=== PATIENT | female | born 1950 | race Caucasian/White ===

== ENCOUNTER 2021-12-25 12:06 | Inpatient (IN) | payer MEDICARE, OTHER ==
[~2021-12-25] VITALS: Ht 165.1 cm; Wt 45.6 kg
[~2021-12-25 12:06] MED LIST: Boniva150 MG PO; CEFD300 PO; DEXA4; LINZESS145 MCG PO; MELO7.5 PO; MEMA10 PO
[2021-12-25 12:41] LABS: BASOPHILS ABSOLUTE AUTO 0.02 K/mm3 (0.00-0.23); BASOPHILS PERCENT AUTO 0 % (0-2); EOSINOPHILS ABSOLUTE AUTO 0.01 K/mm3 (0.00-0.68); EOSINOPHILS PERCENT AUTO 0 % (0-6); IMMATURE GRAN ABSOLUTE AUTO 0.06 K/mm3 (0.00-0.10); IMMATURE GRAN PERCENT AUTO 1 % (0-1); LYMPHOCYTES ABSOLUTE AUTO 0.83 K/mm3 (0.84-5.20); LYMPHOCYTES PERCENT AUTO 8 % (21-46); MONOCYTES ABSOLUTE AUTO 1.11 K/mm3 (0.16-1.47); MONOCYTES PERCENT AUTO 11 % (4-13); Mean Corpuscular HGB 26.3 pg (26.0-34.0); Mean Corpuscular HGB Conc 29.6 g/dL (31.5-36.5); Mean Corpuscular Volume 89 fL (80-100); Mean Platelet Volume 10.1 fL (9.1-12.4); NEUTROPHILS PERCENT AUTO 79 % (41-73); Platelet Count 436 K/mm3 (150-400); RDW Standard Deviation 54.2 fL (35.1-46.3); White Blood Cell Count 9.83 K/mm3 (4.00-11.30)
[2021-12-25 12:45] LABS: Hematocrit 16.9 % (33.0-51.0)
[2021-12-25 13:07] LABS: Albumin, Blood 2.2 g/dL (3.4-5.0); Albumin/Globulin Ratio 0.7 (0.8-1.8); Bilirubin, Total 0.2 mg/dL (0.1-1.0); Bun/Creatinine Ratio 74.8 (12.0-20.0); Calcium, Blood 8.4 mg/dL (8.5-10.1); Creatinine, Blood 0.63 mg/dL (0.40-1.00); Potassium, Blood 3.8 mmol/L (3.5-5.5); Total Protein, Blood 5.2 g/dL (6.4-8.2)
--- NOTE | 2021-12-25 18:01 | NUR ---
Received call from ED RN Deniz Valencia reporting Pt and family may benefit from Palliative Care Consult. Received call from ICU slice cutting machine operator helper Stacey reporting family may benefit from goals of care discussion. Joint visit with Dr Lehman and this RN in Pt's ED room. Pt pleasantly confused with spouse Steven at [facility]. Dr Lehman provides update on findings and discusses recommendations. This RN engaged in therapeutic discussion regarding gaols of care including consider comfort care. Spouse Steven intermittently tearful and appears to be struggling with information and stating being unsure and "not ready to give up yet". He reports being to Pt for 53 years. They have no children but he does have siblings that have been assisting with her care. Steven reports Pt is a DNR and would like time to consider options. He would like to pursure treatment until he has had the oppertunity to process information. Steven is agreeable for continued PC visits. Palliative Care will F/U for therapeutic visits.
--- NOTE | 2021-12-25 18:46 | NUR ---
Spiritual Care Visit - Palliative Care Request Pt. is still in ED7 and welcomes my visit. Spouse is present. Both Pt. and spouse are unsettled about the Pts. condition. Pt. displays evidence of being fearful, and spouse displays evidence of being in shock. With a calming presence and empathetic listening pray for pt. and spouse. They both verbalize gratitude for the spiritual care visit, and welcome this rubbish collector to return in the AM after she is moved to ICU8.
[2021-12-25 19:31] LABS: Hemoglobin 9.7 g/dL (11.5-16.0)
[2021-12-25 21:15] LABS: Hematocrit 27.4 % (33.0-51.0)
[2021-12-26 01:23] LABS: Hematocrit 27.6 % (33.0-51.0)
[2021-12-26 01:56] LABS: PCO2 Arterial 34.1 mmHg (35-45); PO2 Arterial 390 mmHg (80-100)
[2021-12-26 01:57] LABS: pH Blood Arterial 7.07 (7.35-7.45)
[2021-12-26 04:21] LABS: Hemoglobin 8.1 g/dL (11.5-16.0); Mean Corpuscular HGB Conc 32.4 g/dL (31.5-36.5); Mean Corpuscular Volume 90 fL (80-100); Mean Platelet Volume 10.2 fL (9.1-12.4); NRBC ABSOLUTE 0.18 K/mm3 (0.00-0.02); Platelet Count 222 K/mm3 (150-400); RDW Standard Deviation 52.8 fL (35.1-46.3); Red Blood Cell Count 2.79 M/mm3 (3.80-5.20); White Blood Cell Count 17.72 K/mm3 (4.00-11.30)
[2021-12-26 04:44] LABS: Albumin, Blood 1.8 g/dL (3.4-5.0); Albumin/Globulin Ratio 0.8 (0.8-1.8); Bilirubin, Total 1.4 mg/dL (0.1-1.0); Calcium, Blood 7.8 mg/dL (8.5-10.1); Creatinine, Blood 0.89 mg/dL (0.40-1.00); Globulin, Blood 2.3 g/dL (2.2-4.0); Magnesium, Blood 3.4 mg/dL (1.6-2.4); Potassium, Blood 5.2 mmol/L (3.5-5.5); Total Protein, Blood 4.1 g/dL (6.4-8.2)
[2021-12-26 05:09] LABS: BAND PERCENT MAN 13 % (0-8); BASOPHILS PERCENT MAN 0 % (0-2); EOSINOPHILS PERCENT MAN 0 % (0-6); LYMPHOCYTES ABSOLUTE MAN 0.88 K/mm3 (0.84-5.20); LYMPHOCYTES PERCENT MAN 5 % (21-46); METAMYELOCYTE ABSOLUTE MAN 0.35 K/mm3 (0.00-0.00); METAMYELOCYTE PERCENT MAN 2 % (0-0); MONOCYTES ABSOLUTE MAN 0.35 K/mm3 (0.16-1.47); MONOCYTES PERCENT MAN 2 % (4-13); MYELOCYTE ABSOLUTE MAN 0.35 K/mm3 (0.00-0.00); MYELOCYTE PERCENT MAN 2 % (0-0); NEUTROPHILS ABSOLUTE MAN 15.77 K/mm3 (1.96-9.15); SEG NEUTROPHILS PERCENT MAN 76 % (41-73); TOTAL CELLS COUNTED 100
--- NOTE | 2021-12-26 05:20 | NUR ---
PT ARRIVED TO ICU AROUND 2014 FROM ED. NEURO: A&OX4. PLEASENTLY CONFUSED INTERMITTENTLY - CALLS "HONEY" REPEATIVELY. DENIES PAIN OR DISCOMFORT CV: PRESSORS TITRATE TO MAP > 60. ART LINE ZERO AND APPROPRIATE WAVEFORM. AFEBRILE LUNGS: [place] ON HIFLO 100% 30L. ABG REPORTED TO DR. THURSTON GI/: RECTAL TUBE IN PLACE. BLACK TARRY STOOL SKIN: Q2 TURNS BONY PROMINENCES OFFLOADED AND PROTECTED. COCCYX BLANCHABLE ERYTHEMA W/SCABBED SKIN TEAR (PIC IN CHART). DRESSING PLACED FOR SKIN PROTECTION
--- NOTE | 2021-12-26 07:58 | NUR ---
Assumed care of pt at 0700 from Yaron BIRCH. Pt responsive to pressure. Breathing with high flow, heated NC, initially 30 LPM and 100% FiO2. Unable to achieve SpO2 reading on patient despite use of nare probe. RT called into room as pt was tachypneic, RR 35. Retractions noted in neck. RT increased flow to [address] Jordan on phone as pressor requirements are increasing. Ionized calcium checked. Provider ordered 1 liter PRBC and 1 liter NS bolus.
--- NOTE | 2021-12-26 10:32 | NUR ---
Spiritual care visit. Pt. is awake in bed. Spouse and Sister IL are present. Pt. displays evidence of anxiety and shock. Pt. verbalizes that she doesn't understand "what is going to happen." Listen empathetically and normalize the Pt. experience. Prayed with Pt. Spouse verbalized gratitude for the spiritual care visit. Will remain available to the Pt. , family and staff.
--- NOTE | 2021-12-26 10:53 | NUR ---
Supportive visit earlier this AM. Pt resting in bed with her eyes closed. Pt's spouse and spouse's sister at bedside. Offered active listening and answered questions. Gentle discussion regarding considering comfort care. Spouse appears to be struggling with Pt's prognosis and does not comment much regarding this option. Continued supportive visit. Family agreeable for this RN to F/U a little later today. Palliative Care will remain availabe for supportive and therapeutic visits.
--- NOTE | 2021-12-26 11:58 | NUR ---
RECTAL TUBE BECAME DISLODGED DURING BATHING. TUBE REPLACED. LIQUID DARK STOOL MIXED WITH BRIGHT RED NOTED.
--- NOTE | 2021-12-26 12:00 | NUR ---
1200 ASSESSMENT Pt is more alert after bolus of NS and unit of blood. Pt responded well to fluid bolus and pressors quickly decreased as SBP increased rapidly to 150 mmHg with MAPs in 80s. At cessation of bolus, pressor requirements slowly increased. Pt stating she is in pain. Dr Jordan notified. New orders received. Dr Jordan and Dr Lehman in to see patient to discuss goals of care and prognosis. Dr Pacheco of GI has been notified of case and potential GI bleed. Serrano catheter placed and urinalysis sent. Serrano insertion yielded only 30 mL of urine.
[2021-12-26 12:45] LABS: Hematocrit 28.6 % (33.0-51.0); Hemoglobin 9.5 g/dL (11.5-16.0)
[2021-12-26 12:58] LABS: International Normalized Ratio 2.02; Prothrombin Time Results 20.3 Sec (9.7-11.5)
[2021-12-26 13:16] LABS: Source, Urine Foley catheter
[2021-12-26 13:22] LABS: Appearance, Urine Cloudy (Clear); Bilirubin, Urine Neg (Neg); Blood, Urine 4+ (Neg); Color, Urine Yellow (P-Yellow); Glucose Qualitative, Urine Neg (Neg); Ketones, Urine Neg (Neg); Leukocyte Esterase, Urine 3+ (Neg); Nitrite, Urine Neg (Neg); Protein, Urine 3+ (Neg); Urobilinogen, Urine 1+ (Normal)
[2021-12-26 13:44] LABS: Bacteria Many /hpf; Squamous Epithelial Cells Few /hpf (Few); White Blood Cells, Urine TNTC /hpf (0-5)
[2021-12-26 13:45] LABS: Renal Epithelial Few /hpf (0-Rare)
--- NOTE | 2021-12-26 16:00 | NUR ---
1600 ASSESSMENT Additional fluid bolus given and 2 doses of albumin given. As with previous bolus, steep decrease in pressors with bolus and increase afterwards. Currently, pt is only responsive to pressure/pain. Hands and feet are blue. Dressing changed to arterial line and central line. BP stable. Clarified MAP goal with Dr Jordan as systolic is 120s mmHg and MAP is 50s-60s. Provider orders for MAP goal of 55 mmHg. Pt has had zero urine output, Dr Jordan aware.
--- NOTE | 2021-12-26 18:45 | NUR ---
Approx 1819, pt's spouse calls this RN into room to say "her breathing has changed, it looks flat". On entering room, pt was agonal breathing. hygiene teacher called into room. SpO2 has been unmeasureable for entire shift as there is poor periphery circulation r/t shock and vasopressor use. Mottled extremities. Educated pt's spouse that agonal breathing is a sign of impending . Also discussed that DNR/DNI status has been established, so following this plan of care means pt will not be intubated and placed on ventilator. He states "Well I'm not gonna stand here and do nothing, so let's do that". This RN left room to call Dr Jordan and update. RT notified. Prepared for intubation. On provider arrival to hospital, approx 1829, pt's spouse has made decision not to intubate and further decides on comfort care. Pt's spouse supported in decision by spouse's sister. Currently transitioning to comfort measures. Asked spouse if he thinks the pt looks comfortable and he states "yes".
--- NOTE | 2021-12-26 18:53 | NUR ---
Spiritual Care - EOL visit. Pt. is comfort care and is in the process of actively passing. Prayed aprayers of blessing over the Pt. and comforted the Pts. spouse. Spouse has chosen [facility] for the Home.
--- NOTE | 2021-12-26 19:20 | NUR ---
ASSUMED CARE/TIME OF THIS NURSE ASSUMED CARE OF THIS PATIENT AT 191. AT THIS TIME, VASOPRESSIN GTT WAS ALARMING TO BE CHANGED. UPON ENTERING THE ROOM TO HANG A NEW BAG OF VASOPRESSIN, PATIENT'S AND DAUGHTER WHO WERE AT BEDSIDE REQUESTED THAT IT NOT BE CONTINUED AND THAT ALL GTTS BE TURNED OFF AND OXYGEN REMOVED FOR COMFORT CARE. GTTS STOPPED AT 1911. ATIVAN 1MG IV GIVEN FOR PATIENT COMFORT AND AIR HUNGER. PATIENT TIME OF 1916 WITH ABSENSE OF BREATH SOUNDS AND HEART SOUNDS. FAMILY REMAINS AT [facility]. CHARGE NURSE NOTIFED.
== END 2021-12-26 19:17 | DRG 377 ==
LOC: ER 12:06 → ICUE 16:52 → ICUW 16:52 → ICUE 19:33
PROVIDERS: Emergency Medicine; Internal Medicine; Internal Medicine Critical Care Medicine; ADMIT Internal Medicine
PROC: 3E033XZ Introduction of Vasopressor into Peripheral Vein, Percutaneous Approach (ICD-10-PCS; 2021-12-25)
PROC: 30233N1 Transfusion of Nonautologous Red Blood Cells into Peripheral Vein, Percutaneous Approach (ICD-10-PCS; 2021-12-25)
PROC: 04HY32Z Insertion of Monitoring Device into Lower Artery, Percutaneous Approach (ICD-10-PCS; principal; 2021-12-26)
PROC: 4A133B1 Monitoring of Arterial Pressure, Peripheral, Percutaneous Approach (ICD-10-PCS; 2021-12-26)
PROC: 4A133J1 Monitoring of Arterial Pulse, Peripheral, Percutaneous Approach (ICD-10-PCS; 2021-12-26)
PROC: 06HY33Z Insertion of Infusion Device into Lower Vein, Percutaneous Approach (ICD-10-PCS; 2021-12-26)
DX: K25.4 Chronic or unspecified gastric ulcer with hemorrhage (principal); G92.8 Other toxic encephalopathy; C34.90 Malignant neoplasm of unspecified part of unspecified bronchus or lung; D62 Acute posthemorrhagic anemia; C78.7 Secondary malignant neoplasm of liver and intrahepatic bile duct; C77.2 Secondary and unspecified malignant neoplasm of intra-abdominal lymph nodes; C79.51 Secondary malignant neoplasm of bone; Z66 Do not resuscitate; M81.0 Age-related osteoporosis without current pathological fracture; Z51.5 Encounter for palliative care; R62.7 Adult failure to thrive; F32.A Depression, unspecified; Z90.49 Acquired absence of other specified parts of digestive tract; Z90.710 Acquired absence of both cervix and uterus; Z87.891 Personal history of nicotine dependence; Z79.899 Other long term (current) drug therapy; T50.8X5A Adverse effect of diagnostic agents, initial encounter; R57.8 Other shock; G71.02 Facioscapulohumeral muscular dystrophy; E86.1 Hypovolemia
CPT/HCPCS: 36415; 36430; 36556; 36620; 71045; 74177; 80053; 81001; 82272; 82330; 82803; 83735; 85014; 85018; 85025; 85610; 86850; 86900; 86901; 86923; 87077; 87086; 87186; 93005; 93010; 96365-59; 96375; 99291-25; C1751; C9113; J2060; J2370; J2405; J3010; J7030; J7040; J7060; J7070; P9016; P9047; Q9967